=== PATIENT | male | born 1985 | race Caucasian/White ===

== ENCOUNTER 2017-08-26 21:20 | Emergency (ER) | payer OTHER ==
[~2017-08-26 21:20] MED LIST: methylPREDNISolone SOD SUCC 125 MG/2 ML VIAL ONE
[2017-08-26] MEDS ORDERED: NS 1,000 ML IV ONE (21:25)
[2017-08-26] MEDS ORDERED: FAMOTIDINE 20 MG/2 ML SDV IVP ONE (21:26)
[2017-08-26] MEDS ORDERED: methylPREDNISolone SOD SUCC 125 MG/2 ML VIAL IVP ONE (21:26)
--- NOTE | 2017-08-26 22:43 | EDPHY ---
H & P Stated Complaint: Rash to torso, arms, face and neck, worsening. Time Seen by Provider: 08/26/17 21:24 HPI/ROS: 31-year-old male presents with a rash sudden onset to his torso and arms as well as upper legs. He had taken Benadryl at home without improvement. He has no history of allergies. He was mowing the yd this afternoon and then came in doors, had a spicy dish for dinner and after literally 1 bite began to have itching around his neck, chest and arms, he then took a hot shower and a Benadryl with no improvement actually the rash was worsening. No swelling in his mouth no difficulty swallowing no difficulty breathing no wheezing. No coughing. No recent antibiotics No prior food allergies Review of systems As per HPI General no fever no chills no weakness HEENT no eye pain no eye discharge. No eye redness, no sore throat Respiratory no cough, no shortness of breath Cardiac no chest pain, no peripheral edema GI no abdominal pain, no diarrhea, no constipation, no nausea, no vomiting no flank pain, no hematuria, no dysuria Musculoskeletal no myalgias, no joint pain Heme no easy bruising, no easy bleeding Endo no polyuria, no polydipsia Skin positive rashes, positive pruritus Neuro no syncope, no dizziness, no headaches Psych is no suicidal ideation, no homicidal ideation Source: Patient, Family Exam Limitations: No limitations - Personal History Current Tetanus/Diphtheria Vaccine: Unsure Current Tetanus Diphtheria and Acellular Pertussis (TDAP): Unsure - Medical/Surgical History Hx Asthma: No Hx Chronic Respiratory Disease: No Hx Diabetes: No Hx Cardiac Disease: No Hx Renal Disease: No Hx Cirrhosis: No Hx Alcoholism: No Hx HIV/AIDS: No Hx Splenectomy or Spleen Trauma: No Other PMH: Denies. - Family History Significant Family History: No pertinent family hx - Social History Smoking Status: Never smoked Alcohol Use: Occasionally - Physical Exam Exam: 31-year-old male alert and oriented in moderate distress secondary to or rash Vital signs stable HEENT atraumatic normocephalic, extraocular muscles intact, anicteric Oropharynx negative for erythema negative exudate, tolerating own secretions No tongue swelling, no uvular edema, no stridor Neck supple no meningismus Lungs clear to auscultation bilaterally, no wheezing Heart regular rate and rhythm without murmur rub or gallop Abdomen nondistended normoactive bowel sounds soft nontender Back no CVA tenderness, no step-offs, no spinal tenderness Extremities no cyanosis clubbing or edema Skin Scattered erythematous maculopapular rash to toward so arms neck and upper legs Constitutional: Initial Vital Signs Temperature (C) 36.6 C 08/26/17 21:49 Heart Rate 94 08/26/17 21:49 Respiratory Rate 18 08/26/17 21:49 Blood Pressure 144/87 H 08/26/17 21:49 O2 Sat (%) 95 08/26/17 21:49 O2 Delivery Mode Room Air Allergies/Adverse Reactions: No Known Allergies Allergy (Unverified 08/26/17 21:52) Home Medications: Medication Instructions Recorded Famotidine [Pepcid 20 MG (*)] 20 mg PO BID #10 tab 08/26/17 methylPREDNISolone [Medrol Dose 1 each PO AD #1 ea 08/26/17 Romeo] Medical Decision Making ED Course/Re-evaluation: Patient seen and evaluated for sudden onset of urticarial rash. IV established Patient given diphenhydramine 50 mg IV, famotidine 20 mg IV and Solu-Medrol 125 mg IV. Patient observed for the next 90 min with marked improvement. Impression Allergic reaction, unknown antigen No oral or respiratory involvement Plan Discharge home Benadryl q.6 hours p.r.n. Rash itching Famotidine 20 mg p.o. Twice daily x5 days Medrol Dosepak Follow-up PCP Return if worsens Differential Diagnosis: differential diagnosis considered allergic reaction -urticaria , possibly environmental as he had been mowing the yard, food allergy -had a new dish for dinner - Data Points Medications Given: Discontinued Medications Diphenhydramine HCl (Benadryl Injection) 50 mg IVP EDNOW ONE Stop: 08/26/17 21:26 Last Admin: 08/26/17 21:47 Dose: 50 mg Famotidine (Pepcid) 20 mg IVP EDNOW ONE Stop: 08/26/17 21:27 Last Admin: 08/26/17 21:47 Dose: 20 mg Sodium Chloride (Ns) 1,000 mls @ 0 mls/hr IV ONCE ONE PRN Reason: Wide Open Stop: 08/26/17 21:26 Last Admin: 08/26/17 21:46 Dose: 1,000 mls Methylprednisolone Sodium Succinate (Solu-Medrol) 125 mg IVP EDNOW ONE Stop: 08/26/17 21:27 Last Admin: 08/26/17 21:47 Dose: 125 mg Departure - Departure Disposition: Home, Routine, Self-Care Clinical Impression: Urticaria, Allergic reaction Condition: Good Instructions: Urticaria (ED), General Allergic Reaction (ED) Referrals: Patient,NotPresent [Primary Care Provider] - As per Instructions Prescriptions: Famotidine [Pepcid 20 MG (*)] 20 mg PO BID #10 tab methylPREDNISolone [Medrol Dose Romeo] 1 each PO AD #1 ea
[2017-08-26 22:49] VITALS: BP 126/71
== END 2017-08-26 23:20 | disposition home or self-care (01) ==
LOC: CED 21:20
DX: L50.0 Allergic urticaria (principal)
CPT/HCPCS: 96374; J1200; J2930